=== PATIENT | male | born 1980 | race Caucasian/White ===

== ENCOUNTER 2017-07-20 12:52 | Emergency (ER) | payer SELFPAY ==
[~2017-07-20] VITALS: Ht 175.3 cm; Wt 174.0 kg
[2017-07-20 12:57] VITALS: BP 150/80; PULSE 95; RESP 16; TEMP 97.5; O2SAT 99
[2017-07-20] MEDS ORDERED: BENZ100 PO (14:06)
--- NOTE | 2017-07-20 14:07 | PD ---
HPI Chief Complaint: Cold / Flu Symptoms Time Seen by Provider: 13:58 Travel History International Travel<30 days: No Contact w/Intl Traveler<30days: No Traveled to known affect area: No History of Present Illness HPI 37-year-old male here with nasal congestion, cough, sore throat, body ache 3 days. Denies fever or chills. Symptom severity is mild. No aggravating or alleviating factors. PFSH Past Medical History ADHD: Yes Cardiovascular Problems: No Cerebrovascular Accident: No Diabetes: Yes (NO MEDS) Patient Takes Glucophage: No Diminished Hearing: No Genitourinary: No Headaches: No Musculoskeletal: No Neurologic: Yes (adhd) Respiratory: No Immunizations Current: Yes Migraines: No Seizures: No Tetanus Vaccination: Unknown Influenza Vaccination: No ?: Not Past Surgical History Other Surgery: Yes (PILONIDAL CYST) Social History Alcohol Use: Yes (SOCIAL) Tobacco Use: Yes (1/2 ppd) Substance Use: No Allergies-Medications (Allergen,Severity, Reaction): Coded Allergies: No Known Allergies (Verified Adverse Reaction, Unknown, 07/20/17) Reported Meds & Prescriptions Reported Meds & Active Scripts Active Tessalon Perles (Benzonatate) 100 Mg Cap 100 Mg PO TID PRN Review of Systems Except as stated in HPI: all other systems reviewed are Neg General / Constitutional: No: Fever Physical Exam Narrative GENERAL: Alert male. Nontoxic appearing. SKIN: Warm and dry. HEAD: Normocephalic. EYES: No scleral icterus. No injection or drainage. NOSE: Clear nasal discharge. THROAT: Mild pharyngeal erythema. No tonsillar hypertrophy or exudate. NECK: Supple, trachea midline. No lymphadenopathy. No meningismus. CARDIOVASCULAR: Regular rate and rhythm without murmurs, gallops, or rubs. RESPIRATORY: Breath sounds equal bilaterally. No accessory muscle use. GASTROINTESTINAL: Abdomen soft, non-tender, nondistended. MUSCULOSKELETAL: No cyanosis, or edema. BACK: Nontender without obvious deformity. No CVA tenderness. Data Data Last Documented VS Vital Signs Date Time Temp Pulse Resp B/P (MAP) Pulse Ox O2 Delivery O2 Flow Rate FiO2 07/20/17 12:57 97.5 95 16 150/80 (103) 99 Orders Orders Ed Discharge Order (07/20/17 14:16) [facility] Medical Decision Making Medical Screen Exam Complete: Yes Emergency Medical Condition: Yes Differential Diagnosis URI, influenza, bronchitis Narrative Course 37-year-old female here with mild URI-like symptoms. He is well-appearing. Vital signs are stable. He'll be treated for viral URI Diagnosis Primary Impression: URI (upper respiratory infection) Qualified Codes: J06.9 - Acute upper respiratory infection, unspecified; B97.89 - Other viral agents as the cause of diseases classified elsewhere Referrals: Primary Care Physician Additional Instructions: Take [id number] or Tylenol or ibuprofen as needed for pain and fever. To the Tessalon promethazine for cough. Stay well hydrated. Scripts Benzonatate (Tessalon Perles) 100 Mg Cap 100 MG PO TID Y for COUGH, #14 CAP 0 Refills Prov: Jesenia Romero 07/20/17 Disposition: 01 DISCHARGE HOME Condition: Stable Jesenia Romero Jul 20, 2017 14:07
== END 2017-07-20 14:25 | disposition home or self-care (01) ==
LOC: PHEFT 12:52
DX: J06.9 Acute upper respiratory infection, unspecified (principal); B97.89 Other viral agents as the cause of diseases classified elsewhere; F17.200 Nicotine dependence, unspecified, uncomplicated
CPT/HCPCS: 99283

== ENCOUNTER 2018-01-06 19:50 | Emergency (ER) | payer SELFPAY ==
[~2018-01-06] VITALS: Ht 177.8 cm; Wt 170.0 kg
[~2018-01-06 19:50] MED LIST: BENZ100 PO
[2018-01-06 20:18] VITALS: BP 161/75; PULSE 100; RESP 16; TEMP 98.5; O2SAT 99
[2018-01-06] MEDS ORDERED: SODIUM CHLOR 0.9% 1000 ML INJ 1,000 ML IV ONE ×2 (20:45→21:15)
[2018-01-06] MEDS ORDERED: SODIUM CHLORIDE 0.9% FLUSH 10 ML FLUSH IVF PRN (20:45)
--- NOTE | 2018-01-06 21:00 | PD ---
HPI Chief Complaint: Dizziness Time Seen by Provider: 20:40 Travel History International Travel<30 days: No Contact w/Intl Traveler<30days: No Traveled to known affect area: No History of Present Illness HPI 37-year-old male here for evaluation of elevated blood glucose, lightheadedness and dizziness. The patient reports that for the last couple weeks he has been feeling lightheaded and dizzy. The symptoms are made worse when going from sitting to standing. He checked his blood glucose at home and it has ranged between 280s and 400s. He is not on anything for hyperglycemia and has never been formally diagnosed with diabetes. He has a long history of a pilonidal cyst, and this was evaluated at a hospital in [place] about a week ago. They prescribed him Bactrim and Keflex which she has not started. He denies fevers or chills. No chest pain or dyspnea. No nausea or vomiting. No urinary symptoms. Of note he states that last week his parents and he buried them. He has been under a lot of stress because of this. He denies suicidal ideation. PFSH Past Medical History ADHD: Yes Cardiovascular Problems: No Cerebrovascular Accident: No Diabetes: Yes (NO MEDS) Patient Takes Glucophage: No Diminished Hearing: No Genitourinary: No Headaches: No Musculoskeletal: No Neurologic: Yes (adhd) Respiratory: No Immunizations Current: Yes Migraines: No Seizures: No Tetanus Vaccination: Unknown Influenza Vaccination: No Past Surgical History Other Surgery: Yes (PILONIDAL CYST) Social History Alcohol Use: Yes (SOCIAL) Tobacco Use: Yes (1/2 ppd) Substance Use: No Allergies-Medications (Allergen,Severity, Reaction): Coded Allergies: No Known Allergies (Verified Adverse Reaction, Unknown, 01/06/18) Reported Meds & Prescriptions Reported Meds & Active Scripts Active No Active Prescriptions or Reported Medications Review of Systems Except as stated in HPI: all other systems reviewed are Neg Physical Exam Narrative GENERAL: Well-developed, well-nourished, overweight, awake, alert, no apparent distress. SKIN: Focused skin assessment warm/dry. Gluteal cleft with area of induration and mild warmth and erythema, no fluctuance. There is an area centrally where there has been spontaneous drainage. HEAD: Atraumatic. Normocephalic. EYES: Pupils equal and round. No scleral icterus. No injection or drainage. ENT: No nasal bleeding or discharge. Mucous membranes pink and dry. NECK: Trachea midline. No JVD. CARDIOVASCULAR: Regular rate and rhythm. No murmur appreciated. RESPIRATORY: No accessory muscle use. Clear to auscultation. Breath sounds equal bilaterally. GASTROINTESTINAL: Abdomen soft, non-tender, nondistended. MUSCULOSKELETAL: No obvious deformities. No clubbing. No cyanosis. No edema. NEUROLOGICAL: Awake and alert. No obvious cranial nerve deficits. Motor grossly within normal limits. Normal speech. PSYCHIATRIC: Appropriate mood and affect; insight and judgment normal. Data Data Last Documented VS Vital Signs Date Time Temp Pulse Resp B/P (MAP) Pulse Ox O2 Delivery O2 Flow Rate FiO2 01/06/18:18 98.5 100 16 161/75 (103) 99 Orders Orders Complete Blood Count With Diff (01/06/18 20:45) Comprehensive Metabolic Panel (01/06/18 20:45) Beta Hydroxybutyrate (Acetone) (01/06/18 20:45) Urinalysis - C+S If Indicated (01/06/18 20:45) Chest, Single Ap (01/06/18 20:45) Ecg Monitoring (01/06/18 20:45) Iv Access Insert/Monitor (01/06/18 20:45) Oximetry (01/06/18 20:45) NPO (01/06/18 20:45) Sodium Chlor 0.9% 1000 Ml Inj (Ns 1000 M (01/06/18 20:45) Sodium Chlor 0.9% 1000 Ml Inj (Ns 1000 M (01/06/18 21:15) Sodium Chloride 0.9% Flush (Ns Flush) (01/06/18 20:45) Drug Screen, Random Urine (01/06/18 20:45) Insulin Human Regular Inj (Novolin R Inj (01/06/18 22:15) Metoclopramide Inj (Reglan Inj) (01/06/18 22:15) Ketorolac Inj (Toradol Inj) (01/06/18 22:15) Ct Brain W/O Iv Contrast(Rout) (01/06/18 ) Blood Glucose (01/06/18 22:56) Labs Laboratory Tests Test 01/06/18 20:50 White Blood Count 7.9 TH/MM3 Red Blood Count 5.13 MIL/MM3 Hemoglobin 13.6 GM/DL Hematocrit 41.4 % Mean Corpuscular Volume 80.7 FL Mean Corpuscular Hemoglobin 26.5 PG Mean Corpuscular Hemoglobin Concent 32.9 % Red Cell Distribution Width 14.7 % Platelet Count 187 TH/MM3 Mean Platelet Volume 10.6 FL Neutrophils (%) (Auto) 67.8 % Lymphocytes (%) (Auto) 24.1 % Monocytes (%) (Auto) 5.0 % Eosinophils (%) (Auto) 2.3 % Basophils (%) (Auto) 0.8 % Neutrophils # (Auto) 5.4 TH/MM3 Lymphocytes # (Auto) 1.9 TH/MM3 Monocytes # (Auto) 0.4 TH/MM3 Eosinophils # (Auto) 0.2 TH/MM3 Basophils # (Auto) 0.1 TH/MM3 CBC Comment DIFF FINAL Differential Comment Blood Urea Nitrogen 7 MG/DL Creatinine 0.81 MG/DL Random Glucose 262 MG/DL Total Protein 7.7 GM/DL Albumin 3.3 GM/DL Calcium Level 9.1 MG/DL Alkaline Phosphatase 84 U/L Aspartate Amino Transf (AST/SGOT) 53 U/L Alanine Aminotransferase (ALT/SGPT) 78 U/L Total Bilirubin 0.5 MG/DL Sodium Level 138 MEQ/L Potassium Level 3.7 MEQ/L Chloride Level 100 MEQ/L Carbon Dioxide Level 26.4 MEQ/L Anion Gap 12 MEQ/L Estimat Glomerular Filtration Rate 108 ML/MIN B-Hydroxybutyrate 0.09 MMOL/L [facility] Medical Decision Making Medical Screen Exam Complete: Yes Emergency Medical Condition: Yes Differential Diagnosis Hyperglycemia, DKA, metabolic abnormality, cellulitis, UTI, anemia Narrative Course Vital signs reviewed. CBC: WBC 7.9, hemoglobin 13.6, hematocrit 41.4, platelets 187. CMP is remarkable for random glucose 262, otherwise unremarkable. Beta hydroxybutyrate is 0.09. The patient is not in DKA. Patient tells me that he has a diffuse headache that has been going on for a couple of weeks. He will be given Reglan and Toradol, and a CT head will be performed. Patient was given 2 L of normal saline IV and will be given 4 units of IV insulin and reassessed. CT head: CONCLUSION: 1. Mild cerebral atrophy, slightly out of proportion to age. 2. No acute intracranial abnormality. Patient and the patient's roommate were made aware of all findings. The patient 's roommate seems very concerned about the patient. The patient denies suicidal ideation, states that he does feel slightly depressed because of what he has gone through lately. He does have cellulitis to his lower back where he once had a pilonidal cyst. He has Bactrim and Keflex at home that was prescribed to him last week, however he has not been taking it. I encouraged him to take this medication. He was given 4 units of IV insulin here in the emergency department with improvement in blood sugar. I will start him on metformin. Patient counseled on diet, exercise, and weight loss. I will given the information to the [facility] to follow-up with this week. He is stable for discharge home with outpatient follow-up. He was advised on when to return to the emergency department. He verbalizes understanding and agreement with plan. Diagnosis Primary Impression: Hyperglycemia Additional Impression: Cellulitis of lower back Referrals: [facility] 3 days Additional Instructions: Follow-up with a primary care physician this week. Return to the emergency department for worsening symptoms or any other concerns. Scripts Metformin (Metformin) 500 Mg Tab 500 MG PO BIDPC for Blood Sugar Management, #60 TAB 0 Refills Prov: Alphonso Mcallister MD 01/06/18 Disposition: 01 DISCHARGE HOME Condition: Stable Alphonso Mcallister MD January 06, 2018 21:00
--- NOTE | 2018-01-06 21:26 | RADRPT ---
EXAM DATE: 01/06/2018 9:22 PM EDT AGE/SEX: 37 years / Male INDICATIONS: Cough. CLINICAL DATA: This is the patient's initial encounter. Patient reports that signs and symptoms have been present for 1 day and indicates a pain score of 0/10. MEDICAL/SURGICAL HISTORY: Diabetes mellitus type I. None. COMPARISON: [facility] [place], [place]ST PA & LAT, 12/18/2010. . FINDINGS: Mild diffuse hazy opacity in the mid and lower left lung zones likely positional. No definite new foc al pleural or parenchymal opacities. Cardiac silhouette is mildly enlarged. Bony thorax is intact. CONCLUSION: 1. Diffuse hazy opacity in the mid to lower left lung zones, likely positional. Consider formal PA a nd lateral views of the chest for better evaluation. 2. Enlargement of the cardiac silhouette, also likely positional. Electronically signed by: Shahid Casey MD 01/06/2018 9:24 PM EDT
[2018-01-06 21:34] LABS: AUTOMATED NEUTROPHIL # 5.4 TH/MM3 (1.8-7.7); BASOPHIL # 0.1 TH/MM3 (0-0.2); BASOPHIL % 0.8 % (0.0-2.0); EOSINOPHIL # 0.2 TH/MM3 (0-0.4); EOSINOPHIL % 2.3 % (0.0-4.0); HEMATOCRIT 41.4 % (39.0-51.0); HEMOGLOBIN 13.6 GM/DL (13.0-17.0); LYMPH % 24.1 % (9.0-44.0); LYMPHOCYTE # 1.9 TH/MM3 (1.0-4.8); MEAN CELL VOLUME 80.7 FL (80.0-100.0); MEAN CORPUSCULAR HEMOGLOBIN 26.5 PG (27.0-34.0); MEAN CORPUSCULAR HGB CONC 32.9 % (32.0-36.0); MEAN PLATELET VOLUME 10.6 FL (7.0-11.0); MONOCYTE # 0.4 TH/MM3 (0-0.9); NEUT % 67.8 % (16.0-70.0); PLATELET COUNT 187 TH/MM3 (150-450); RED BLOOD COUNT 5.13 MIL/MM3 (4.50-5.90); RED CELL DISTRIBUTION WIDTH 14.7 % (11.6-17.2); WHITE BLOOD COUNT 7.9 TH/MM3 (4.0-11.0)
[2018-01-06 21:59] LABS: ALBUMIN 3.3 GM/DL (3.4-5.0); AST (GOT) 53 U/L (15-37); BICARBONATE 26.4 MEQ/L (21.0-32.0); BLOOD UREA NITROGEN 7 MG/DL (7-18); CALCIUM 9.1 MG/DL (8.5-10.1); CHLORIDE 100 MEQ/L (98-107); CREATININE 0.81 MG/DL (0.60-1.30); GLOMERULAR FILTRATION RATE 108 ML/MIN (>89); GLUCOSE,RANDOM 262 MG/DL (74-106); SODIUM (NA) 138 MEQ/L (136-145)
[2018-01-06 22:04] LABS: ALKALINE PHOSPHATASE 84 U/L (45-117); ALT (GPT) 78 U/L (12-78); TOTAL BILIRUBIN ADULT 0.5 MG/DL (0.2-1.0); TOTAL PROTEIN 7.7 GM/DL (6.4-8.2)
[2018-01-06] MEDS ORDERED: KETOROLAC TROMETHAMINE 30 MG/ML (IVP) VIAL IV PUSH ONE (22:15)
[2018-01-06] MEDS ORDERED: METOCLOPRAMIDE HCL 10 MG/2 ML VIAL IV PUSH ONE (22:15)
[2018-01-06] MEDS ORDERED: INSULIN HUMAN REGULAR 1,000 UNITS/10 ML VIAL IV PUSH ONE (22:15)
--- NOTE | 2018-01-06 22:58 | RADRPT ---
EXAM DATE: 01/06/2018 10:55 PM EDT AGE/SEX: 37 years / Male INDICATIONS: Headache, dizziness CLINICAL DATA: This is the patient's initial encounter. Patient reports that signs and symptoms have been present for 1 day and indicates a pain score of 4/10. MEDICAL/SURGICAL HISTORY: Diabetes. None. RADIATION DOSE: 56.35 CTDI (mGy) COMPARISON: No prior [place] exams available for comparison. TECHNIQUE: CT of the head without contrast. Using automated exposure control and adjustment of the mA and/or kV according to patient size, radiation dose was kept as low as reasonably achievable to ob tain optimal diagnostic quality images. FINDINGS: Cerebrum: Mild diffuse cerebral atrophy. The ventricles are normal for degree of atrophy. No evidenc e of midline shift, mass lesion, hemorrhage or acute infarction. No extraaxial fluid collections are seen. Posterior Fossa: The cerebellum and brainstem are intact. The 4th ventricle is midline. The cerebe llopontine angle is unremarkable. Extracranial: The visualized portion of the orbits is intact. Skull: The calvaria is intact. No evidence of skull fracture. CONCLUSION: 1. Mild cerebral atrophy, slightly out of proportion to age. 2. No acute intracranial abnormality. Electronically signed by: Shahid Casey MD 01/06/2018 10:57 PM EDT
[2018-01-06] MEDS ORDERED: METF500T PO (23:24)
== END 2018-01-07 00:40 | disposition home or self-care (01) ==
LOC: NEPE 19:50
DX: E11.65 Type 2 diabetes mellitus with hyperglycemia (principal); L03.312 Cellulitis of back [any part except buttock and flank]; F17.200 Nicotine dependence, unspecified, uncomplicated
CPT/HCPCS: 70450; 71045; 80053; 82010; 85025; 96361; 96374; 96375; 99285; J1815; J1885; J2765; J7030